=== PATIENT | female | born 1995 | race Caucasian/White ===

== ENCOUNTER 2018-02-17 02:50 | Emergency (ER) | payer SELFPAY ==
[~2018-02-17] VITALS: Ht 162.6 cm; Wt 59.1 kg
[2018-02-17 02:52] VITALS: BP 124/85
== END 2018-02-17 04:04 | disposition left against medical advice (07) ==
LOC: EMS 02:52
DX: F10.129 Alcohol abuse with intoxication, unspecified (principal); Z53.21 Procedure and treatment not carried out due to patient leaving prior to being seen by health care provider